=== PATIENT | female | born 1985 | race Caucasian/White ===

== ENCOUNTER 2016-11-26 22:16 | Emergency (ER) | payer MEDICAID ==
[2016-11-26] MEDS ORDERED: NS 1,000 ML IV ONE (22:21)
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
[2016-11-26 22:30] VITALS: RESP 16; TEMP 97.7
--- NOTE | 2016-11-26 22:35 | CPEKG ---
Heart Rate: 91 RR Interval: 659 P-R Interval: 115 QRSD Interval: 74 QT Interval: 356 QTC Interval: 439 P [place]: 65 QRS [place]: 75 T Wave [place]: 17 EKG Severity - NORMAL ECG - EKG Impression: SINUS RHYTHM Electronically Signed By: Greg Anand 26-Nov-2016 23:03:09
[2016-11-26 22:46] LABS: % IMMATURE GRANULYOCYTES 0.5 % (0.0-1.1); ABSOLUTE IMMATURE GRANULOCYTES 0.04 10^3/uL (0.00-0.10); ADD DIFF? NO; ADD MORPH? NO; ADD SCAN? NO; ATYPICAL LYMPHOCYTE FLAG 0 (0-99); FRAGMENT RBC FLAG 0 (0-99); HEMATOCRIT 40.9 % (38.0-47.0); HEMOGLOBIN 14.5 g/dL (12.6-16.3); LEFT SHIFT FLG 0 (0-99); LIPEMIA HEMOLYSIS FLAG 90 (0-99); MEAN CELL HEMOGLOBIN CONCENTR. 35.5 g/dL (32.4-36.7); MEAN CELL VOLUME 95.8 fL (81.5-99.8); MEAN PLATELET VOLUME 10.1 fL (8.7-11.7); PLATELET CLUMPS FLAG 10 (0-99); PLATELET COUNT 330 10^3/uL (150-400); RED BLOOD CELL COUNT 4.27 10^6/uL (4.18-5.33); RED CELL DISTRIBUTION WIDTH 12.2 % (11.5-15.2)
[2016-11-26 23:14] LABS: ANION GAP 12 mEq/L (8-16); CALCIUM 8.7 mg/dL (8.5-10.4); CARBON DIOXIDE 18 mEq/l (22-31); CHLORIDE 112 mEq/L (97-110); CREATININE 0.8 mg/dL (0.6-1.0); ETHANOL SERUM 26 mg/dL (0-10); GLOMERULAR FILTRATION RATE > 60; GLUCOSE 78 mg/dL (70-100); POTASSIUM 3.9 mEq/L (3.5-5.2); SODIUM 142 mEq/L (134-144)
--- NOTE | 2016-11-26 23:17 | CT ---
CT Scan of Head (Without Contrast) Clinical Indications: Syncope. Technique: Axial CT images were acquired from foramen magnum through vertex, without intravenous con trast. Soft tissue and bone windows were reviewed on the computer workstation. Images were reconstr ucted down to 1.25 mm images. Dose reduction techniques were utilized. Findings: No mass lesions are seen, and there is no evidence of intracranial hemorrhage or acute inf arct. The ventricles and subarachnoid spaces are normal in size for this age group. Bone windows re veal no sign of fracture. The visualized paranasal sinuses and mastoid air cells are free of fluid. Impression: Normal CT of the head. Findings are discussed with Dr. Darrian Schmitz.
[2016-11-26] MEDS ORDERED: ACETAMINOPHEN 500 MG TAB PO ONE (23:35)
[2016-11-26 23:37] VITALS: BP 126/78; PULSE 86; O2SAT 98
== END 2016-11-26 23:32 | disposition home or self-care (01) ==
LOC: EDUNIT#
DX: R55 Syncope and collapse (principal); E86.0 Dehydration
CPT/HCPCS: G0480